=== PATIENT | male | born 1940 | race Caucasian/White ===

== ENCOUNTER 2022-01-20 11:48 | Outpatient (REF) | payer MEDICARE, SELFPAY ==
[2022-01-20 12:11] LABS: MANUAL DIFF FLAG NO
[2022-01-20 12:33] LABS: Basophils Absolute Auto 0.1 X10*3/uL (0.0-0.2); Eosinophils Absolute Auto 0.2 X10*3/uL (0.0-0.4); Eosinophils Percent Auto 4.3 % (0-4); Imm Gran Abs Auto 0.01 X10*3/uL (0.00-0.03); Imm Gran Pct Auto 0.2 % (0.0-0.4); Lymphocytes Absolute Auto 1.4 X10*3/uL (1.2-4.9); Lymphocytes Percent Auto 27.6 % (20-40); Mean Corpuscular HGB Conc 33.3 g/dl (31.0-36.0); Mean Corpuscular Hemoglobin 30.4 pg (27.0-33.0); Mean Corpuscular Volume 91.3 fL (80.0-98.0); Mean Platelet Volume 10.3 fL (9.4-12.4); Monocytes Absolute Auto 0.3 X10*3/uL (0.1-1.2); Monocytes Percent Auto 5.3 % (2-11); Neutrophils Percent Auto 61.6 % (45-73); Platelet Count 191 X10*3/uL (160-400); Red Blood Count 4.27 X10*6/uL (4.60-5.80); Red Cell Distribution Width 13.6 % (11.0-16.0); White Blood Count 4.9 X10*3/uL (4.8-10.8)
[2022-01-20 14:52] LABS: Folate > 20.0 ng/mL (> or = 4.0); Vitamin B12 1047 pg/mL (200-900)
[2022-01-20 15:26] LABS: Ferritin 37 ng/mL (20-250); Iron 90 mcg/dL (45-160); Percent Iron Saturation 26 % (15-50); Total Iron Binding Capacity 344 mcg/dL (228-428); Unsaturated Iron Binding 254 ug/dL
[2022-01-23 14:13] LABS: Gliadin Deamidated IgA Ab <1.0 U/mL; Gliadin Deamidated IgG Ab <1.0 U/mL; Immunoglobulin A 357 mg/dL (70-320); Transglutaminase IgA <1.0 U/mL
[2022-01-24 12:35] LABS: Endomysial IgA Antibody Negative (Negative)
== END 2022-01-20 11:49 | disposition home or self-care (01) ==
LOC: HO.LAB 11:48
PROVIDERS: Visit Provider Internal Medicine
DX: D64.9 Anemia, unspecified (principal)
CPT/HCPCS: 36415; 82607; 82728; 82746; 82784; 83540; 85025; 86231; 86258; 86364

== ENCOUNTER 2022-01-26 13:20 | Outpatient (REF) | payer MEDICARE, SELFPAY ==
[2022-01-29 13:47] LABS: OBS Int Ctl Valid YES; OBS Lot 50612 3L; OBS1 NEGATIVE (NEGATIVE); OBS2 NEGATIVE (NEGATIVE); OBS3 NEGATIVE (NEGATIVE)
== END 2022-01-26 13:21 | disposition home or self-care (01) ==
LOC: HO.LNP 13:20
PROVIDERS: Visit Provider Internal Medicine
DX: D64.9 Anemia, unspecified (principal)
CPT/HCPCS: 82270